=== PATIENT | female | born 1960 | race Caucasian/White ===

== ENCOUNTER 2021-06-17 12:57 | Emergency (ER) | payer BC, OTHER ==
[~2021-06-17] VITALS: Ht 154.9 cm; Wt 63.5 kg
[2021-06-17 13:06] VITALS: BP 136/81
[2021-06-17] MEDS ORDERED: cefTRIAXone W LIDOCAINE 1 GM IM IM ONE (13:45)
[2021-06-17] MEDS ORDERED: CLINDAMYCIN 600 MG/4 ML VL IM ONE (13:45)
[2021-06-17] MEDS ORDERED: cefTRIAXone SOD 1,000 MG VL IM ONE (14:45)
== END 2021-06-17 15:26 | disposition home or self-care (01) ==
LOC: ER 12:57
DX: K02.9 Dental caries, unspecified (principal)
CPT/HCPCS: 70486; 96372; 99284; J0696